=== PATIENT | female | born 1960 | race Caucasian/White ===

== ENCOUNTER 2020-06-16 14:48 | Emergency (ER) | payer MEDICAID, OTHER ==
[~2020-06-16] VITALS: Ht 162.5 cm; Wt 78.1 kg
--- NOTE | 2020-06-16 15:04 | ED General ---
General Stated Complaint: PASSING OUT History of Present Illness Date Seen by Provider: Jun 16, 2020 Time Seen by Provider: 14:58 Initial Comments 60-year-old female presents with pain in her right lateral ribs. Patient reports that 2 days ago she "passed out" fell and hurt her ribs when she landed on something. Patient reports that a year ago she had a heart surgery and valve surgery. Every since then she has frequently passed out. Patient reports she just recently moved to this area from [place] I will. That she was seen a director of security and physician that I will. Patient's only acute complaint is pain from the fall. Patient is complaining of syncope generalized malaise, chronic cough or all at least a year long complaints. Allergies and Home Medications Patient Home Medication List Home Medication List Reviewed: Yes Review of Systems Review of Systems Constitutional: No chills, No fever; malaise EENTM: see HPI Respiratory: cough Cardiovascular: No chest pain; Hx of Intervention, vascular heart diseas Gastrointestinal: no symptoms reported Genitourinary: no symptoms reported Musculoskeletal: see HPI Skin: no symptoms reported Psychiatric/Neurological: No Symptoms Reported Hematologic/Lymphatic: No Symptoms Reported Past Buzawyx-Vbprwh-Hnngpa Hx Past Med/Social Hx: Reviewed Nursing Past Med/Soc Hx Patient Social History Recent Foreign Travel: No Contact w/Someone Who Travel: No Physical Exam Vital Signs Vital Signs - First Documented 06/16/20 15:00 Temp 36.6 Pulse 84 Resp 16 B/P (MAP) 131/66 (87) Pulse Ox 96 O2 Delivery Room Air Capillary Refill : Height, Weight, BMI Height: '" Weight: lbs. oz. kg; BMI Method: General Appearance: No Apparent Distress, WD/WN Eyes: Bilateral Eye Normal Inspection, Bilateral Eye PERRL HEENT: PERRL/EOMI Neck: Normal Inspection, Non Tender Respiratory: Lungs Clear, Normal Breath Sounds Cardiovascular: Regular Rate, Rhythm, No Edema Gastrointestinal: Non Tender Extremity: Normal Inspection, Normal Range of Motion Neurologic/Psychiatric: Alert, Oriented x3, No Motor/Sensory Deficits, Normal Mood/Affect, kidney puller II-XII Norm as Tested Skin: Normal Color, Warm/Dry Progress/Results/Core Measures Suspected Sepsis SIRS Temperature: Pulse: Respiratory Rate: Laboratory Tests 06/16/20 15:18: White Blood Count 6.6 Blood Pressure / Mean: Laboratory Tests 06/16/20 15:18: Creatinine 0.78, Platelet Count 244 Results/Orders Lab Results Laboratory Tests Test 06/16/20 14:58 06/16/20 15:18 Range/Units Urine Color YELLOW Urine Clarity CLEAR Urine pH 6.0 5-9 Urine Specific [place] 1.010 L 1.016-1.022 Urine Protein NEGATIVE NEGATIVE Urine Glucose (UA) NEGATIVE NEGATIVE Urine Ketones NEGATIVE NEGATIVE Urine Nitrite NEGATIVE NEGATIVE Urine Bilirubin NEGATIVE NEGATIVE Urine Urobilinogen 0.2 < = 1.0 MG/DL Urine Leukocyte Esterase NEGATIVE NEGATIVE Urine RBC (Auto) NEGATIVE NEGATIVE Urine RBC NONE /HPF Urine WBC 0-2 /HPF Urine Squamous Epithelial Cells 2-5 /HPF Urine Crystals NONE /LPF Urine Bacteria NEGATIVE /HPF Urine Casts NONE /LPF Urine Mucus NEGATIVE /LPF Urine Culture Indicated NO White Blood Count 6.6 4.3-11.0 10^3/uL Red Blood Count 4.93 4.35-5.85 10^6/uL Hemoglobin 14.6 11.5-16.0 G/DL Hematocrit 44 35-52 % Mean Corpuscular Volume 89 80-99 FL Mean Corpuscular Hemoglobin 30 25-34 PG Mean Corpuscular Hemoglobin Concent 33 32-36 G/DL Red Cell Distribution Width 14.7 H 10.0-14.5 % Platelet Count 244 130-400 10^3/uL Mean Platelet Volume 10.6 H 7.4-10.4 FL Neutrophils (%) (Auto) 60 42-75 % Lymphocytes (%) (Auto) 28 12-44 % Monocytes (%) (Auto) 7 0-12 % Eosinophils (%) (Auto) 4 0-10 % Basophils (%) (Auto) 1 0-10 % Neutrophils # (Auto) 3.9 1.8-7.8 X 10^3 Lymphocytes # (Auto) 1.8 1.0-4.0 X 10^3 Monocytes # (Auto) 0.5 0.0-1.0 X 10^3 Eosinophils # (Auto) 0.3 0.0-0.3 10^3/uL Basophils # (Auto) 0.0 0.0-0.1 10^3/uL Sodium Level 143 135-145 MMOL/L Potassium Level 3.6 3.6-5.0 MMOL/L Chloride Level 97 L 98-107 MMOL/L Carbon Dioxide Level 29 21-32 MMOL/L Anion Gap 17 H 5-14 MMOL/L Blood Urea Nitrogen 18 7-18 MG/DL Creatinine 0.78 0.60-1.30 MG/DL Estimat Glomerular Filtration Rate > 60 BUN/Creatinine Ratio 23 Glucose Level 108 H 70-105 MG/DL Calcium Level 10.4 H 8.5-10.1 MG/DL My Orders Orders - AMILCAR ARRIAGA DO Ribs/Unilateral With Chest (06/16/20 15:05) Basic Metabolic Panel (06/16/20 15:05) Cbc With Automated Diff (06/16/20 15:05) Ua Culture If Indicated (06/16/20 15:05) Ekg Tracing (06/16/20 15:05) Vital Signs/I&O 06/16/20 15:00 Temp 36.6 Pulse 84 Resp 16 B/P (MAP) 131/66 (87) Pulse Ox 96 O2 Delivery Room Air Capillary Refill : Progress Note : Time: 16:46 Progress Note Patient's x-ray shows old rib fractures but no acute. Patient with no acute findings on lab or EKG. Patient has an appointment with her primary care provider which I encouraged her to keep. She should follow-up with director of security for her recurrent syncope has been going on over the last year. Patient stable will be discharged home ECG Initial ECG Impression Date: Jun 16, 2020 Initial ECG Impression Time: 15:01 Initial ECG Rhythm: Normal Sinus Initial ECG Intervals: Normal Initial ECG Impression: Nonspecific Changes Initial ECG Comparisson: No Previous ECG Available Comment hr 73, sinus rhythm, no acute changes. Diagnostic Imaging Diagonstic Imaging: Xray Plain Films/CT/US/NM/MRI: chest Comments [facility] [place], [place] NAME: HARMONY ESCALONA [facility] REC#: [id number] PT STATUS: REG ER : 1960 PHYSICIAN: AMILCAR ARRIAGA DO ADMIT DATE: 06/16/20/ER FS Draft Date of Exam:06/16/20 RIBS/UNILATERAL WITH CHEST INDICATION: Fall, pain to the right. FINDINGS: Sternal wires are midline. The lungs are clear. No effusion or pneumothorax. No free air beneath the diaphragms. Dedicated right rib series performed. There are old healed deformities posterolaterally on the right at the third, fourth, and fifth ribs. An acute-appearing fracture however is not identified. IMPRESSION: There are some old healed right rib deformities but no acute-appearing fracture or findings of pulmonary parenchymal or pleural injury. Dictated on workstation # [id number] Dict: 06/16/20 1628 Trans: 06/16/20 1641 [id number] Interpreted by: JILLIAN ROBLES Electronically signed by: Departure Impression Primary Impression: Contusion of right chest wall Qualified Codes: S20.211A - Contusion of right front wall of thorax, initial encounter Additional Impression: Recurrent syncope Disposition: HOME, SELF-CARE Condition: Stable Departure-Patient Inst. Patient Instructions: Bruised Rib (DC), Syncope (Fainting) (DC) Add. Discharge Instructions: Follow-up with your primary care provider and director of security for further evaluation of your chronic syncope and other medical conditions Emergency department focuses on treating and ruling out life-threatening diseases. Whenever possible, a diagnosis is given. However, most patients are given an impression based on their history, physical exam, and workup during your brief time in the ER. Information about probable diagnosis and other educational material has been provided. Please take the time to read and understand this information. It is very important that you follow up with a physician as discussed during the visit today. Failure to adhere to your follow-up instructions may lead to severe disability, injury, or so please make sure to keep your appointments or obtain one as requested. Please keep in mind the emergency department is not designed to your primary care or "family doctor" and nonurgent issues are best evaluated by an outpatient physician AMILCAR ARRIAGA DO Jun 16, 2020 15:04
[2020-06-16 15:20] LABS: BILIRUBIN,URINE NEGATIVE (NEGATIVE); CLARITY,URINE CLEAR; COLOR,URINE YELLOW; GLUCOSE, URINE (UA) NEGATIVE (NEGATIVE); KETONES,URINE NEGATIVE (NEGATIVE); LEUKOCYTE ESTERASE ,URINE NEGATIVE (NEGATIVE); NITRITE,URINE NEGATIVE (NEGATIVE); PROTEIN,URINE NEGATIVE (NEGATIVE); WBC,URINE 0-2 /HPF
[2020-06-16 15:21] LABS: BACTERIA,URINE NEGATIVE /HPF
[2020-06-16 15:28] LABS: HEMATOCRIT 44 % (35-52); HEMOGLOBIN 14.6 G/DL (11.5-16.0); MEAN CORPUSCULAR HEMOGLOBIN 30 PG (25-34); WHITE BLOOD COUNT 6.6 10^3/uL (4.3-11.0)
[2020-06-16 15:29] LABS: BASOPHILS % (AUTO) 1 % (0-10); EOSINOPHILS # (AUTO) 0.3 10^3/uL (0.0-0.3); EOSINOPHILS % (AUTO) 4 % (0-10); LYMPHOCYTES # (AUTO) 1.8 X 10^3 (1.0-4.0); LYMPHOCYTES % (AUTO) 28 % (12-44); MEAN CORPUSCULAR HGB CONC 33 G/DL (32-36); MEAN CORPUSCULAR VOLUME 89 FL (80-99); MEAN PLATELET VOLUME 10.6 FL (7.4-10.4); MONOCYTES # (AUTO) 0.5 X 10^3 (0.0-1.0); MONOCYTES % (AUTO) 7 % (0-12); NEUTROPHILS # (AUTO) 3.9 X 10^3 (1.8-7.8); NEUTROPHILS % (AUTO) 60 % (42-75); PLATELET COUNT 244 10^3/uL (130-400)
[2020-06-16 15:49] LABS: BUN/CREATININE RATIO 23; CALCIUM 10.4 MG/DL (8.5-10.1); CARBON DIOXIDE 29 MMOL/L (21-32); CHLORIDE 97 MMOL/L (98-107); CREATININE SERUM 0.78 MG/DL (0.60-1.30); GFR ESTIMATED > 60; GLUCOSE 108 MG/DL (70-105); POTASSIUM 3.6 MMOL/L (3.6-5.0); SODIUM 143 MMOL/L (135-145)
--- NOTE | 2020-06-16 16:42 | Diagnostic Imaging Report ---
INDICATION: Fall, pain to the right. FINDINGS: Sternal wires are midline. The lungs are clear. No effusion or pneumothorax. No free air beneath the diaphragms. Dedicated right rib series performed. There are old healed deformities posterolaterally on the right at the third, fourth, and fifth ribs. An acute-appearing fracture however is not identified. IMPRESSION: There are some old healed right rib deformities but no acute-appearing fracture or findings of pulmonary parenchymal or pleural injury. Dictated by: Dictated on workstation # [id number]
[2020-06-16 17:04] VITALS: BP 114/54
== END 2020-06-16 17:04 | disposition home or self-care (01) ==
LOC: ER FS 14:50
DX: S20.211A Contusion of right front wall of thorax, initial encounter (principal); R55 Syncope and collapse; W18.39XA Other fall on same level, initial encounter
CPT/HCPCS: 36415; 71101; 80048; 81000; 85025; 93005

== ENCOUNTER 2020-12-20 10:51 | Emergency (ER) | payer MEDICAID ==
[~2020-12-20] VITALS: Ht 162 cm; Wt 78.0 kg
--- NOTE | 2020-12-20 11:11 | ED Abdominal Pain ---
General Chief Complaint: Abdominal/GI Problems Stated Complaint: HEADACHE; VOMITING History of Present Illness Date Seen by Provider: December 20, 2020 Time Seen by Provider: 11:05 Initial Comments 60-year-old female presents with 3 days of "just do not feel good" patient reports some nausea, vomiting. She has not vomited since yesterday. She had an episode of dry heaves this morning. She has mild occasional headache. Occasional cough. She has had one Covid vaccine. Patient is a very vague. She does not follow with her primary care provider. No reports of fever, urinary symptoms or abdominal pain. Patient reports she has had some increased fatigue over the last couple days. No other systemic complaints. Allergies and Home Medications Allergies Coded Allergies: codeine (Verified Allergy, Mild, 12/20/20) Patient Home Medication List Home Medication List Reviewed: Yes Review of Systems Review of Systems Constitutional: No chills, No fever; malaise Respiratory: Denies Cough Cardiovascular: Denies Chest Pain, Denies Irregular Heart Rate Gastrointestinal: Denies Abdominal Pain, Denies Constipated, Denies Diarrhea; Nausea, Vomiting Genitourinary: No Symptoms Reported Musculoskeletal: no symptoms reported Skin: no symptoms reported Psychiatric/Neurological: No Symptoms Reported Endocrine: No Symptoms Reported Past Dpckezx-Gkaxfp-Elzzqk Hx Past Med/Social Hx: Reviewed Nursing Past Med/Soc Hx Patient Social History Alcohol Beverage of Choice: Vodka Type Used: Cigarettes 2nd Hand Smoke Exposure: No Recent Hopitalizations: No Seasonal Allergies Seasonal Allergies: No Past Medical History Surgeries: Yes Cardiac, Coronary Stent, Valve Replacement Respiratory: Yes Asthma Cardiac: Yes (CHF) Heart Attack, High Cholesterol, Hypertension Neurological: No Genitourinary: No Gastrointestinal: No Musculoskeletal: Yes (Chronic Pain) Endocrine: No HEENT: No Cancer: No Psychosocial: No Integumentary: No Blood Disorders: No Physical Exam Vital Signs Vital Signs - First Documented 12/20/20 10:55 Temp 36.1 Pulse 61 Resp 18 B/P (MAP) 136/62 (86) Pulse Ox 100 O2 Delivery Room Air Capillary Refill : Height/Weight/BMI Height: '" Weight: lbs. oz. kg; 29.00 BMI Method: General Appearance: no apparent distress Respiratory: chest non-tender, lungs clear Cardiovascular: normal peripheral pulses, regular rate, rhythm Peripheral Pulses: 2+ Radial Pulses (R), 2+ Radial Pulses (L) Gastrointestinal: non tender Extremities: normal range of motion, normal inspection Neurologic/Psychiatric: no motor/sensory deficits, alert, oriented x 3 Skin: normal color, warm/dry Progress/Results/Core Measures Results/Orders Lab Results Laboratory Tests Test 12/20/20 11:45 12/20/20 12:20 Range/Units White Blood Count 4.7 4.3-11.0 10^3/uL Red Blood Count 4.65 4.35-5.85 10^6/uL Hemoglobin 14.0 11.5-16.0 G/DL Hematocrit 42 35-52 % Mean Corpuscular Volume 90 80-99 FL Mean Corpuscular Hemoglobin 30 25-34 PG Mean Corpuscular Hemoglobin Concent 34 32-36 G/DL Red Cell Distribution Width 13.1 10.0-14.5 % Platelet Count 235 130-400 10^3/uL Mean Platelet Volume 9.8 7.4-10.4 FL Immature Granulocyte % (Auto) 0 % Neutrophils (%) (Auto) 61 42-75 % Lymphocytes (%) (Auto) 27 12-44 % Monocytes (%) (Auto) 7 0-12 % Eosinophils (%) (Auto) 4 0-10 % Basophils (%) (Auto) 1 0-10 % Neutrophils # (Auto) 2.9 1.8-7.8 X 10^3 Lymphocytes # (Auto) 1.3 1.0-4.0 X 10^3 Monocytes # (Auto) 0.3 0.0-1.0 X 10^3 Eosinophils # (Auto) 0.2 0.0-0.3 10^3/uL Basophils # (Auto) 0.1 0.0-0.1 10^3/uL Immature Granulocyte # (Auto) 0.0 0.0-0.1 10^3/uL Sodium Level 138 135-145 MMOL/L Potassium Level 4.3 3.6-5.0 MMOL/L Chloride Level 102 98-107 MMOL/L Carbon Dioxide Level 28 21-32 MMOL/L Anion Gap 8 5-14 MMOL/L Blood Urea Nitrogen 19 H 7-18 MG/DL Creatinine 0.74 0.60-1.30 MG/DL Estimat Glomerular Filtration Rate > 60 BUN/Creatinine Ratio 26 Glucose Level 112 H 70-105 MG/DL Calcium Level 10.2 H 8.5-10.1 MG/DL Corrected Calcium 10.0 8.5-10.1 MG/DL Total Bilirubin 0.4 0.1-1.0 MG/DL Aspartate Amino Transf (AST/SGOT) 14 5-34 U/L Alanine Aminotransferase (ALT/SGPT) 8 0-55 U/L Alkaline Phosphatase 53 40-136 U/L Total Protein 7.0 6.4-8.2 GM/DL Albumin 4.2 3.2-4.5 GM/DL Lipase 52 8-78 U/L Urine Color YELLOW Urine Clarity CLOUDY Urine pH 6.0 5-9 Urine Specific [place] 1.025 H 1.016-1.022 Urine Protein NEGATIVE NEGATIVE Urine Glucose (UA) NEGATIVE NEGATIVE Urine Ketones NEGATIVE NEGATIVE Urine Nitrite POSITIVE H NEGATIVE Urine Bilirubin NEGATIVE NEGATIVE Urine Urobilinogen 0.2 < = 1.0 MG/DL Urine Leukocyte Esterase TRACE H NEGATIVE Urine RBC (Auto) NEGATIVE NEGATIVE Urine RBC NONE /HPF Urine WBC 5-10 H /HPF Urine Squamous Epithelial Cells 10-25 H /HPF Urine Crystals NONE /LPF Urine Bacteria MODERATE H /HPF Urine Casts NONE /LPF Urine Mucus NEGATIVE /LPF Urine Culture Indicated YES My Orders Orders - ARRIAGA,AMILCAR L DO Cbc With Automated Diff (12/20/20 11:19) Comprehensive Metabolic Panel (12/20/20 11:19) Lipase (12/20/20 11:19) Ua Culture If Indicated (12/20/20 11:19) Abdomen Flat & Upright/Decub (12/20/20 11:19) Ondansetron Injection (Zofran Injectio (12/20/20 11:30) Lactated Ringers (Lr 1000 Ml Iv Solution (12/20/20 11:19) Famotidine Injection (Pepcid Injection) (12/20/20 11:19) Urine Culture (12/20/20 12:20) Medications Given in ED Current Medications Medications Dose Ordered Sig/Adriana Route Start Time Stop Time Status Last Admin Dose Admin Ondansetron HCl 4 mg ONCE ONCE IVP 12/20/20 11:30 12/20/20 11:31 DC 12/20/20 11:50 4 MG Vital Signs/I&O 12/20/20 10:55 Temp 36.1 Pulse 61 Resp 18 B/P (MAP) 136/62 (86) Pulse Ox 100 O2 Delivery Room Air Progress Progress Note : Time: 12:39 Progress Note Patient with questionable urinary tract infection. Based on her having symptoms I will treat her with Keflex along with some Zofran. Patient stable and discharged home. She should follow-up with her primary care provider for further evaluation Diagnostic Imaging Diagonstic Imaging: Xray Plain Films/CT/US/NM/MRI: abdomen Comments [facility] [place], [place] NAME: HARMONY ESCALONA [facility] REC#: [id number] PT STATUS: REG ER : 1960 PHYSICIAN: AMILCAR ARRIAGA DO ADMIT DATE: 12/20/20/ER FS Draft Date of Exam:12/20/20 ABDOMEN FLAT & UPRIGHT/DECUB INDICATION: Nausea, vomiting, right lower quadrant pain. FINDINGS: There are surgical clips in the right lower quadrant. The bowel gas, as well as clips at the gallbladder fossa and the bowel gas pattern are unremarkable. No abnormal fecal loading. No pneumatosis. No free gas. No air-fluid levels. Departure Impression Primary Impression: Nausea and vomiting Qualified Codes: R11.2 - Nausea with vomiting, unspecified Additional Impression: Urinary tract infection Qualified Codes: N30.00 - Acute cystitis without hematuria Disposition: HOME, SELF-CARE Condition: Improved Departure-Patient Inst. Referrals: ALOK PEREZ (PCP) Primary Care Physician [facility] (Family) Primary Care Physician Patient Instructions: Urinary Tract Infection, Adult (DC) Scripts Ondansetron (Ondansetron Odt) 4 Mg Tab.rapdis 4 MG PO Q6H PRN for NAUSEA/VOMITING, #20 TAB 0 Refills Prov: AMILCAR ARRIAGA DO 12/20/20 Cephalexin (Cephalexin) 500 Mg Tablet 500 MG PO QID, #20 TAB 0 Refills Prov: AMILCAR ARRIAGA DO 12/20/20 AMILCAR ARRIAGA DO December 20, 2020 11:11
[2020-12-20] MEDS ORDERED: LACTATED RINGERS 1,000 ML IV STA (11:19)
[2020-12-20] MEDS ORDERED: FAMOTIDINE 20MG/2ML IV (PEPCID) IV STA (11:19)
[2020-12-20] MEDS ORDERED: ONDANSETRON 4 MG/2 ML (SDV) Z0FRAN IVP ONE (11:30)
--- NOTE | 2020-12-20 11:43 | Diagnostic Imaging Report ---
INDICATION: Nausea, vomiting, right lower quadrant pain. FINDINGS: There are surgical clips in the right lower quadrant. The bowel gas, as well as clips at the gallbladder fossa and the bowel gas pattern are unremarkable. No abnormal fecal loading. No pneumatosis. No free gas. No air-fluid levels. IMPRESSION: Nonobstructive and unremarkable bowel gas pattern. Dictated by: Dictated on workstation # [id number]
[2020-12-20 11:56] LABS: BASOPHILS % (AUTO) 1 % (0-10); EOSINOPHILS % (AUTO) 4 % (0-10); HEMATOCRIT 42 % (35-52); LYMPHOCYTES % (AUTO) 27 % (12-44); MEAN CORPUSCULAR HEMOGLOBIN 30 PG (25-34); MEAN CORPUSCULAR HGB CONC 34 G/DL (32-36); MEAN CORPUSCULAR VOLUME 90 FL (80-99); MEAN PLATELET VOLUME 9.8 FL (7.4-10.4); MONOCYTES % (AUTO) 7 % (0-12); NEUTROPHILS % (AUTO) 61 % (42-75); PLATELET COUNT 235 10^3/uL (130-400); WHITE BLOOD COUNT 4.7 10^3/uL (4.3-11.0)
[2020-12-20 11:57] LABS: BASOPHILS # (AUTO) 0.1 10^3/uL (0.0-0.1); EOSINOPHILS # (AUTO) 0.2 10^3/uL (0.0-0.3); LYMPHOCYTES # (AUTO) 1.3 X 10^3 (1.0-4.0); MONOCYTES # (AUTO) 0.3 X 10^3 (0.0-1.0); NEUTROPHILS # (AUTO) 2.9 X 10^3 (1.8-7.8)
[2020-12-20 12:23] LABS: CARBON DIOXIDE 28 MMOL/L (21-32); CHLORIDE 102 MMOL/L (98-107); POTASSIUM 4.3 MMOL/L (3.6-5.0); SODIUM 138 MMOL/L (135-145)
[2020-12-20 12:24] LABS: ALANINE AMINOTRANSFERASE 8 U/L (0-55); ALBUMIN 4.2 GM/DL (3.2-4.5); ALKALINE PHOSPHATASE 53 U/L (40-136); BILIRUBIN,TOTAL 0.4 MG/DL (0.1-1.0); BUN/CREATININE RATIO 26; CALCIUM 10.2 MG/DL (8.5-10.1); CREATININE SERUM 0.74 MG/DL (0.60-1.30); GFR ESTIMATED > 60; GLUCOSE 112 MG/DL (70-105); LIPASE 52 U/L (8-78)
[2020-12-20 12:32] LABS: BILIRUBIN,URINE NEGATIVE (NEGATIVE); CLARITY,URINE CLOUDY; COLOR,URINE YELLOW; GLUCOSE, URINE (UA) NEGATIVE (NEGATIVE); KETONES,URINE NEGATIVE (NEGATIVE); LEUKOCYTE ESTERASE ,URINE TRACE (NEGATIVE); NITRITE,URINE POSITIVE (NEGATIVE); PROTEIN,URINE NEGATIVE (NEGATIVE)
[2020-12-20 12:33] LABS: BACTERIA,URINE MODERATE /HPF
[2020-12-20] MEDS ORDERED: CEPH500T PO (12:41)
[2020-12-20] MEDS ORDERED: ONDA4TAB11 PO (12:41)
[2020-12-20 12:54] VITALS: BP 122/72
== END 2020-12-20 12:56 | disposition home or self-care (01) ==
LOC: EDUNIT# 10:51 → ER FS 10:52
DX: R11.2 Nausea with vomiting, unspecified (principal); N39.0 Urinary tract infection, site not specified; I11.0 Hypertensive heart disease with heart failure; I50.9 Heart failure, unspecified; J45.909 Unspecified asthma, uncomplicated; I25.2 Old myocardial infarction; Z88.5 Allergy status to narcotic agent
CPT/HCPCS: 36415; 74019; 80053; 81000; 83690; 85025; 87077; 87088; 87186

== ENCOUNTER 2021-01-11 20:20 | Emergency (ER) | payer MEDICAID ==
[~2021-01-11] VITALS: Ht 162.6 cm; Wt 47.6 kg
[~2021-01-11 20:20] MED LIST: CEPH500T PO; ONDA4TAB11 PO
--- NOTE | 2021-01-11 20:26 | ED GI ---
General Stated Complaint: N/V History of Present Illness Date Seen by Provider: Jan 11, 2021 Time Seen by Provider: 20:25 Initial Comments 60-year-old female presents with generalized body aches, nausea and vomiting. Patient reports that symptoms started yesterday after she received her second Covid vaccination. Reports that she had similar response to her initial vaccination but this 1 is worse. She reports she is having hard time keeping them down. She reports some mild right mid back and abdominal pain. She denies any urinary symptoms. Allergies and Home Medications Allergies Coded Allergies: codeine (Verified Allergy, Mild, 12/20/20) Penicillins (Verified Allergy, Unknown, 01/11/21) prednisone (Verified Allergy, Unknown, 01/11/21) Home Medications Cephalexin 500 Mg Tablet, 500 MG PO QID Prescribed by: AMILCAR ARRIAGA on 12/20/20 1241 Ondansetron 4 Mg Tab.rapdis, 4 MG PO Q6H PRN for NAUSEA/VOMITING Prescribed by: AMILCAR ARRIAGA on 12/20/20 1241 Patient Home Medication List Home Medication List Reviewed: Yes Review of Systems Review of Systems Constitutional: No chills, No fever; malaise EENTM: No Symptoms Reported Respiratory: Denies Cough, Denies Shortness of Air, Denies Wheezing Cardiovascular: Denies Chest Pain, Denies Irregular Heart Rate Gastrointestinal: Abdominal Pain; Denies Diarrhea; Nausea, Vomiting Genitourinary: No Symptoms Reported Musculoskeletal: see HPI Skin: no symptoms reported Psychiatric/Neurological: No Symptoms Reported Endocrine: No Symptoms Reported Past Uqsxrpv-Wsmhox-Zvijal Hx Past Med/Social Hx: Reviewed Nursing Past Med/Soc Hx Patient Social History Alcohol Beverage of Choice: Vodka Type Used: Cigarettes 2nd Hand Smoke Exposure: No Recent Hopitalizations: No Seasonal Allergies Seasonal Allergies: No Past Medical History Surgeries: Yes Cardiac, Coronary Stent, Valve Replacement Respiratory: Yes Asthma Cardiac: Yes (CHF) Heart Attack, High Cholesterol, Hypertension Neurological: No Genitourinary: No Gastrointestinal: No Musculoskeletal: Yes (Chronic Pain) Endocrine: No HEENT: No Cancer: No Psychosocial: No Integumentary: No Blood Disorders: No Physical Exam Vital Signs Vital Signs - First Documented 01/11/21 20:30 Temp 36.0 Pulse 75 Resp 18 B/P (MAP) 117/62 (80) Pulse Ox 99 O2 Delivery Room Air Capillary Refill : Height/Weight/BMI Height: '" Weight: lbs. oz. kg; 29.00 BMI Method: General Appearance: no apparent distress HEENT: PERRL/EOMI Neck: full range of motion, supple Respiratory: lungs clear, normal breath sounds Cardiovascular: normal peripheral pulses, regular rate, rhythm Peripheral Pulses: 2+ Radial Pulses (R), 2+ Radial Pulses (L) Gastrointestinal: soft, tenderness (Mild right-sided tenderness) Back: CVA tenderness (R) Neurologic/Psychiatric: alert, normal mood/affect, oriented x 3 Skin: normal color, warm/dry Progress/Results/Core Measures Results/Orders Lab Results Laboratory Tests Test 01/11/21 20:45 01/11/21 21:15 Range/Units White Blood Count 5.5 4.3-11.0 10^3/uL Red Blood Count 4.37 4.35-5.85 10^6/uL Hemoglobin 13.3 11.5-16.0 G/DL Hematocrit 39 35-52 % Mean Corpuscular Volume 90 80-99 FL Mean Corpuscular Hemoglobin 30 25-34 PG Mean Corpuscular Hemoglobin Concent 34 32-36 G/DL Red Cell Distribution Width 12.4 10.0-14.5 % Platelet Count 224 130-400 10^3/uL Mean Platelet Volume 10.2 7.4-10.4 FL Immature Granulocyte % (Auto) 0 % Neutrophils (%) (Auto) 68 42-75 % Lymphocytes (%) (Auto) 19 12-44 % Monocytes (%) (Auto) 7 0-12 % Eosinophils (%) (Auto) 4 0-10 % Basophils (%) (Auto) 1 0-10 % Neutrophils # (Auto) 3.7 1.8-7.8 X 10^3 Lymphocytes # (Auto) 1.1 1.0-4.0 X 10^3 Monocytes # (Auto) 0.4 0.0-1.0 X 10^3 Eosinophils # (Auto) 0.2 0.0-0.3 10^3/uL Basophils # (Auto) 0.0 0.0-0.1 10^3/uL Immature Granulocyte # (Auto) 0.0 0.0-0.1 10^3/uL Sodium Level 137 135-145 MMOL/L Potassium Level 3.4 L 3.6-5.0 MMOL/L Chloride Level 96 L 98-107 MMOL/L Carbon Dioxide Level 30 21-32 MMOL/L Anion Gap 11 5-14 MMOL/L Blood Urea Nitrogen 13 7-18 MG/DL Creatinine 1.10 0.60-1.30 MG/DL Estimat Glomerular Filtration Rate 51 BUN/Creatinine Ratio 12 Glucose Level 104 70-105 MG/DL Calcium Level 9.5 8.5-10.1 MG/DL Corrected Calcium 9.5 8.5-10.1 MG/DL Total Bilirubin 0.6 0.1-1.0 MG/DL Aspartate Amino Transf (AST/SGOT) 13 5-34 U/L Alanine Aminotransferase (ALT/SGPT) 9 0-55 U/L Alkaline Phosphatase 54 40-136 U/L Total Protein 6.5 6.4-8.2 GM/DL Albumin 4.0 3.2-4.5 GM/DL Lipase 65 8-78 U/L Urine Color YELLOW Urine Clarity CLEAR Urine pH 6.0 5-9 Urine Specific [place] 1.015 L 1.016-1.022 Urine Protein NEGATIVE NEGATIVE Urine Glucose (UA) NEGATIVE NEGATIVE Urine Ketones NEGATIVE NEGATIVE Urine Nitrite NEGATIVE NEGATIVE Urine Bilirubin NEGATIVE NEGATIVE Urine Urobilinogen 0.2 < = 1.0 MG/DL Urine Leukocyte Esterase TRACE H NEGATIVE Urine RBC (Auto) NEGATIVE NEGATIVE Urine RBC NONE /HPF Urine WBC 0-2 /HPF Urine Squamous Epithelial Cells 2-5 /HPF Urine Renal Epithelial Cells /HPF Urine Crystals NONE /LPF Urine Bacteria TRACE /HPF Urine Casts PRESENT /LPF Urine Hyaline Casts 2-5 H /LPF Urine Mucus NEGATIVE /LPF Urine Culture Indicated NO My Orders Orders - ARRIAGA,AMILCAR L DO Cbc With Automated Diff (01/11/21 20:29) Comprehensive Metabolic Panel (01/11/21 20:29) Lipase (01/11/21 20:29) Ua Culture If Indicated (01/11/21 20:29) Ketorolac Injection (Toradol Injection) (01/11/21 20:29) Abdomen (Kub) 1 View (01/11/21 20:29) Metoclopramide Injection (Reglan Injecti (01/11/21 21:32) Vital Signs/I&O 01/11/21 20:30 Temp 36.0 Pulse 75 Resp 18 B/P (MAP) 117/62 (80) Pulse Ox 99 O2 Delivery Room Air Progress Progress Note : Progress Note Patient with no significant findings on lab or x-ray. Patient symptoms are c onsistent with a response to the Covid vaccination. I discussed with her that this will wear off in time and that she is just responding to her shot. Patient has Zofran at home. She is stable and discharged home Diagnostic Imaging Diagonstic Imaging: Xray Plain Films/CT/US/NM/MRI: abdomen Comments Date of Exam:01/11/21 ABDOMEN (KUB) 1 VIEW INDICATION: Nausea and vomiting. 2 views were obtained. FINDINGS: The bowel gas pattern is nonspecific. There are surgical clips in the right upper quadrant and pelvis. There are no abnormal abdominal calcifications. IMPRESSION: Nonspecific bowel gas pattern. Reviewed: Reviewed by Me, Reviewed/Discussed Departure Impression Primary Impression: Myalgia after COVID-19 vaccination Additional Impression: Nausea and vomiting Qualified Codes: R11.2 - Nausea with vomiting, unspecified Disposition: 01 HOME, SELF-CARE Condition: Stable Departure-Patient Inst. Referrals: ALOK PEREZ (PCP) Primary Care Physician [facility] (Family) Primary Care Physician Patient Instructions: COVID-19 Vaccine (mRNA), Nausea and Vomiting, Adult (DC) Add. Discharge Instructions: Clear liquid diet, advance as tolerated Follow-up with your primary care provider as needed AMILCAR ARRIAGA DO Jan 11, 2021 20:26
[2021-01-11] MEDS ORDERED: KETOROLAC 30 MG/ML VIAL IVP STA (20:29)
[2021-01-11 20:53] LABS: HEMATOCRIT 39 % (35-52); HEMOGLOBIN 13.3 G/DL (11.5-16.0); MEAN CORPUSCULAR HEMOGLOBIN 30 PG (25-34); MEAN CORPUSCULAR HGB CONC 34 G/DL (32-36); MEAN CORPUSCULAR VOLUME 90 FL (80-99); MEAN PLATELET VOLUME 10.2 FL (7.4-10.4); PLATELET COUNT 224 10^3/uL (130-400); WHITE BLOOD COUNT 5.5 10^3/uL (4.3-11.0)
[2021-01-11 20:54] LABS: BASOPHILS % (AUTO) 1 % (0-10); EOSINOPHILS # (AUTO) 0.2 10^3/uL (0.0-0.3); EOSINOPHILS % (AUTO) 4 % (0-10); LYMPHOCYTES # (AUTO) 1.1 X 10^3 (1.0-4.0); LYMPHOCYTES % (AUTO) 19 % (12-44); MONOCYTES # (AUTO) 0.4 X 10^3 (0.0-1.0); MONOCYTES % (AUTO) 7 % (0-12); NEUTROPHILS # (AUTO) 3.7 X 10^3 (1.8-7.8); NEUTROPHILS % (AUTO) 68 % (42-75)
--- NOTE | 2021-01-11 20:59 | Diagnostic Imaging Report ---
INDICATION: Nausea and vomiting. 2 views were obtained. FINDINGS: The bowel gas pattern is nonspecific. There are surgical clips in the right upper quadrant and pelvis. There are no abnormal abdominal calcifications. IMPRESSION: Nonspecific bowel gas pattern. Dictated by: Dictated on workstation # [id number]
[2021-01-11 21:13] LABS: BILIRUBIN,TOTAL 0.6 MG/DL (0.1-1.0); CALCIUM 9.5 MG/DL (8.5-10.1); CREATININE SERUM 1.1 MG/DL (0.60-1.30); POTASSIUM 3.4 MMOL/L (3.6-5.0); TOTAL PROTEIN 6.5 GM/DL (6.4-8.2)
[2021-01-11 21:25] LABS: BACTERIA,URINE TRACE /HPF; BILIRUBIN,URINE NEGATIVE (NEGATIVE); CLARITY,URINE CLEAR; COLOR,URINE YELLOW; GLUCOSE, URINE (UA) NEGATIVE (NEGATIVE); KETONES,URINE NEGATIVE (NEGATIVE); LEUKOCYTE ESTERASE ,URINE TRACE (NEGATIVE); NITRITE,URINE NEGATIVE (NEGATIVE); PROTEIN,URINE NEGATIVE (NEGATIVE); WBC,URINE 0-2 /HPF
[2021-01-11] MEDS ORDERED: METOCLOPRAMIDE INJ 10 MG/2 ML (REGLAN) IVP STA (21:32)
[2021-01-11 21:49] VITALS: BP 121/72
== END 2021-01-11 21:49 | disposition home or self-care (01) ==
LOC: EDUNIT# 20:20 → ER FS 20:21
DX: M79.10 Myalgia, unspecified site (principal); T50.Z95A Adverse effect of other vaccines and biological substances, initial encounter; R11.2 Nausea with vomiting, unspecified; I11.0 Hypertensive heart disease with heart failure; I50.9 Heart failure, unspecified; I25.2 Old myocardial infarction; J45.909 Unspecified asthma, uncomplicated; Z88.0 Allergy status to penicillin; Z88.5 Allergy status to narcotic agent; Z88.8 Allergy status to other drugs, medicaments and biological substances
CPT/HCPCS: 36415; 74018; 80053; 81000; 83690; 85025

== ENCOUNTER 2021-02-08 10:23 | Emergency (ER) | payer MEDICAID ==
[~2021-02-08] VITALS: Ht 162.6 cm; Wt 76.7 kg
[2021-02-08] MEDS ORDERED: ORPHENADRINE 60 MG/2 ML (NORFLEX) AMP (ED ONLY) IM STA (10:47)
[2021-02-08] MEDS ORDERED: KETOROLAC 60 MG/2 ML VIAL IM STA (10:47)
--- NOTE | 2021-02-08 10:55 | ED Fall/Injury ---
General Chief Complaint: Trauma-Non Activation Stated Complaint: FALL Source: patient, old records History of Present Illness Date Seen by Provider: Feb 08, 2021 Time Seen by Provider: 10:25 Initial Comments 61-year-old female presenting with complaints of pain in multiple areas since a fall around 1800 on February 07. She hit the back of her head and has some pain in the occipital area but denies loss of consciousness. She is complaining of pain in both knees with some abrasions and scrapes. She also has pain in her right ankle and foot with some swelling. She has chronic pain in her back that is no different since the fall. She also has some pain to her right low back with muscle spasm and tender to touch. No obvious bruising to any areas of pain. No nausea, vomiting, change in vision, drainage from nose or ears. She ran out of her chronic hydrocodone pain medicine 2-3 days ago and finally got a ride today to come get that refilled and was going to see DELMY Michael about pain from fall as well but her provider is not in clinic today so she came to the ED. Location Injury Occurred: home Occurred: yesterday (about 1800 or so in the evening) Severity: severe Injuries/Pain Location: head, lower extremity Context: tripped Loss of Consciousness: no loss of consciousness Associated Symptoms (Fall): No Abdominal Pain, No Chest Pain, No Confusion, No Dizziness; Headache (mild occipital); No Lightheadedness; Muscle Spasms; No Nausea/Vomiting, No Neck Pain, No Ringing in Ears, No Seizures, No Shortness of Air, No Slurred Speech; Trouble Walking (due to pain in legs, right more than left); No Vision Changes Allergies and Home Medications Allergies Coded Allergies: codeine (Verified Allergy, Mild, 12/20/20) Penicillins (Verified Allergy, Unknown, 01/11/21) prednisone (Verified Allergy, Unknown, 01/11/21) Home Medications Cephalexin 500 Mg Tablet, 500 MG PO QID Prescribed by: AMILCAR ARRIAGA on 12/20/20 1241 Cyclobenzaprine HCl 10 Mg Tablet, 10 MG PO Q8H PRN for SPASMS Prescribed by: CHAITANYA MIRANDA on 02/08/21 1308 Hydrocodone/Acetaminophen 1 Each Tablet, 1 EACH PO TID PRN for PAIN-SEVERE (8- 10) Prescribed by: CHAITANYA MIRANDA on 02/08/21 1308 Ondansetron 4 Mg Tab.rapdis, 4 MG PO Q6H PRN for NAUSEA/VOMITING Prescribed by: AMILCAR ARRIAGA on 12/20/20 1241 Patient Home Medication List Home Medication List Reviewed: Yes Review of Systems Review of Systems Constitutional: No chills, No fever Eyes: No Symptoms Reported Ears, Nose, Mouth, Throat: no symptoms reported Respiratory: no symptoms reported Cardiovascular: no symptoms reported Gastrointestinal: no symptoms reported Genitourinary: no symptoms reported Musculoskeletal: see HPI Skin: change in color (mild redness to knees for contusion, right greater than left) Psychiatric/Neurological: No Symptoms Reported Past Iomsuje-Thgevt-Dqhijg Hx Seasonal Allergies Seasonal Allergies: No Past Medical History Surgeries: Yes Cardiac, Coronary Stent, Valve Replacement Respiratory: Yes Asthma Cardiac: Yes (CHF) Heart Attack, High Cholesterol, Hypertension Neurological: No Genitourinary: No Gastrointestinal: No Musculoskeletal: Yes (Chronic Pain) Endocrine: No HEENT: No Cancer: No Psychosocial: No Integumentary: No Blood Disorders: No Physical Exam Vital Signs Vital Signs - First Documented 02/08/21 10:35 Temp 37.0 Pulse 94 Resp 18 B/P (MAP) 119/54 (75) Pulse Ox 97 O2 Delivery Room Air Capillary Refill : Height, Weight, BMI Height: '" Weight: lbs. oz. kg; 18.00 BMI Method: General Appearance: WD/WN, other (anxious) HEENT: PERRL/EOMI Neck: full range of motion, supple, tender lateral (bilateral posterior neck along trapezius muscle area) Cardiovascular: normal peripheral pulses, regular rate, rhythm, systolic murmur (/) Respiratory: chest non-tender, lungs clear, normal breath sounds, no respiratory distress, no accessory muscle use Gastrointestinal: normal bowel sounds, non tender, soft, no pulsatile mass Rectal: deferred Back: no CVA tenderness, muscle spasm (lumbar area of back on right side); No vertebral tenderness Extremities: normal range of motion, no calf tenderness, normal capillary refill, swelling (mild swelling to right ankle/foot.), other (Stable ankle/foot on exam but complaint of pain with palpation anywhere on the foot and ankle on right side) 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, no motor/sensory deficits, alert, oriented x 3 Skin: warm/dry; No ecchymosis; other (mild redness to bilateral knees, right more than left to go with contusion) Joyce Coma Score Best Eye Response: (4) Open Spontaneously Best Verbal Response: (5) Oriented Best Motor Response: (6) Obeys Commands Joyce Total: 15 Progress/Results/Core Measures Results/Orders My Orders Orders - CHAITANYA MIRANDA MD Ketorolac Injection (Toradol Injection) (02/08/21 10:47) Orphenadrine Inj (Ed Only) (Norflex Inje (02/08/21 10:47) Ct Head Wo (02/08/21 10:48) Knee 3 View Bilateral (02/08/21 10:48) Ankle 3 View Right (02/08/21 10:48) Foot 3 View Right (02/08/21 10:48) Air Strup Ankle Brace (02/08/21 13:08) Vital Signs/I&O 02/08/21 02/08/21 10:35 13:16 Temp 37.0 Pulse 94 88 Resp 18 18 B/P (MAP) 119/54 (75) 123/82 Pulse Ox 97 96 O2 Delivery Room Air Room Air Progress Progress Note #1: Progress Note Toradol and Norflex to help treat pain and muscle spasms. Patient requesting pain medicine as she is due for refill of her hydrocodone she gets scheduled from the clinic and states her regular provider is not in today. I advised her that provided images looked okay I could prescribe a few pills to help get her chance to get with the clinic to get the chronic refill. Knees and right foot and ankle were ordered. Since she takes Eliquis a CT scan of her head was also obtained due to her complaint of hitting her head and having pain in the occipital area and along the trapezius muscles on both sides of her neck Differential diagnosis includes exacerbation of chronic pain, contusion from fall, ankle fracture, foot fracture, intracranial hemorrhage, multiple contusions, muscle strain and spasm Progress Note #2: Progress Note Patient reports feeling a little bit better after treatment here in the ED. She was still having a lot of pain and spasms with movement. Reassured patient that her imaging did not show any bleeding or acute fractures. Will prescribe a few hydrocodone and stressed importance of getting back with the clinic. She may also alternate ice and heat to help with inflammation. Diagnostic Imaging Diagonstic Imaging: Xray Plain Films/CT/US/NM/MRI: ankle [facility] [place] [place] NAME: HARMONY ESCALONA [facility] REC#: [id number] PT STATUS: REG ER : 1960 PHYSICIAN: CHAITANYA MIRANDA MD ADMIT DATE: 02/08/21/ER FS Signed Date of Exam:02/08/21 ANKLE 3 VIEW RIGHT ANKLE 3 VIEW RIGHT COMPARISON: None available. INDICATION: Ankle pain after fall TECHNIQUE: Non-weight bearing AP, oblique, and lateral views. FINDINGS: No fracture or traumatic malalignment. No osteochondral lesion of the talar dome. Small plantar and dorsal calcaneal spurs. IMPRESSION: 1. No acute fracture or traumatic malalignment. Dictated by: Dictated on workstation # [id number] Dict: 02/08/21 1206 Trans: 02/08/21 1207 [facility] [id number] Interpreted by: CODY DAVENPORT MD Electronically signed by: CODY DAVENPORT MD 02/08/21 1207 Reviewed: Reviewed by Mt Diagonstic Imaging: Xray Plain Films/CT/US/NM/MRI: knee Comments [facility] [place] [place] NAME: HARMONY ESCALONA [facility] REC#: [id number] PT STATUS: REG ER : 1960 PHYSICIAN: CHAITANYA MIRANDA MD ADMIT DATE: 02/08/21/ER FS Draft Date of Exam:02/08/21 KNEE 3 VIEW BILATERAL INDICATION: Bilateral knee pain after fall two days ago. COMPARISON: None available. TECHNIQUE: Three views of each knee were obtained for a total of six views. FINDINGS: Right knee: No fracture or malalignment. No knee joint effusion. Moderate joint space narrowing in the medial compartment is degenerative in nature. Surgical clips are present along the medial aspect of the knee. Left knee: No fracture or malalignment. Chondrocalcinosis is likely degenerative in nature. No knee joint effusion. Vascular calcifications are seen. IMPRESSION: 1. No acute fracture of either knee. 2. Bilateral knee osteoarthritis. Dictated on workstation # [id number] Dict: 02/08/21 1204 Trans: 02/08/21 1210 AS6 [id number] Interpreted by: CODY DAVENPORT MD Electronically signed by: Reviewed: Reviewed by Mt Diagonstic Imaging: CT Plain Films/CT/US/NM/MRI: head Comments [facility] [place] [place] NAME: HARMONY ESCALONA [facility] REC#: [id number] PT STATUS: REG ER : 1960 PHYSICIAN: CHAITANYA MIRANDA MD ADMIT DATE: 02/08/21/ER FS Draft Date of Exam:02/08/21 CT HEAD WO PROCEDURE: CT head without contrast. TECHNIQUE: Multiple contiguous axial images were obtained through the brain without the use of intravenous contrast. Auto Exposure Controls were utilized during the CT exam to meet ALARA standards for radiation dose reduction. INDICATION: Fall with pain in the occipital region. No prior studies are available for comparison. FINDINGS: The ventricles and sulci are within normal limits. There is no sulcal effacement or midline shift. No acute intra-axial or extra-axial hemorrhage is detected. Cisterns are patent. Visualized paranasal sinuses are clear. IMPRESSION: No acute intracranial process is detected. Dictated on workstation # [id number] Dict: 02/08/21 1202 Trans: 02/08/21 1205 SA [id number] Interpreted by: DOUGLAS NOVA MD Electronically signed by: Reviewed: Reviewed by Mt Diagonstic Imaging: Xray Plain Films/CT/US/NM/MRI: other (Foot) Comments [facility] [place] [place] NAME: HARMONY ESCALONA [facility] REC#: [id number] PT STATUS: REG ER : 1960 PHYSICIAN: CHAITANYA MIRANDA MD ADMIT DATE: 02/08/21/ER FS Draft Date of Exam:02/08/21 FOOT 3 VIEW RIGHT INDICATION: Right foot pain after fall. COMPARISON: None available. TECHNIQUE: Three nonweightbearing views of the right foot. FINDINGS: No acute fracture. Alignment is normal by nonweightbearing imaging. Calcaneal spurs are present. Mild degenerative changes at the talonavicular joint. IMPRESSION: No fracture within the right foot. Dictated on workstation # [id number] Dict: 02/08/21 1207 Trans: 02/08/21 1222 AS6 [id number] Interpreted by: CODY DAVENPORT MD Electronically signed by: Reviewed: Reviewed by Me Departure Impression Primary Impression: Mild sprain of right ankle Qualified Codes: S93.401A - Sprain of unspecified ligament of right ankle, initial encounter Additional Impressions: Right foot strain Qualified Codes: S96.911A - Strain of unspecified muscle and tendon at ankle and foot level, right foot, initial encounter Bilateral knee pain Qualified Codes: M25.561 - Pain in right knee; M25.562 - Pain in left knee Fall at home Qualified Codes: W19.XXXA - Unspecified fall, initial encounter; Y92.009 - Unspecified place in unspecified non-institutional (private) residence as the place of occurrence of the external cause Cervical myofascial strain Qualified Codes: S16.1XXA - Strain of muscle, fascia and tendon at neck level, initial encounter Pain of occiput Contusion of scalp, initial encounter Chronic lumbar pain Qualified Codes: M54.5 - Low back pain; G89.29 - Other chronic pain Disposition: 01 HOME, SELF-CARE Condition: Stable Departure-Patient Inst. Decision time for Depature: 13:08 Referrals: ALOK PEREZ (PCP) Primary Care Physician [facility] (Family) Primary Care Physician Patient Instructions: Preventing Falls ED, Cervical Sprain ED, Knee Pain ED, Ankle Sprain ED, Low Back Pain ED Add. Discharge Instructions: Stay well hydrated and get plenty of rest. Follow up with clinic for refill of your chronic medicines. Alternate ice and heat to help with pain and inflammation. Use ankle air splint to help with pain and give support to your ankle. All discharge instructions reviewed with patient and/or family. Voiced understanding. Scripts Cyclobenzaprine HCl (Cyclobenzaprine HCl) 10 Mg Tablet 10 MG PO Q8H PRN for SPASMS for 5 Days, #15 TAB 0 Refills Prov: CHAITANYA MIRANDA MD 02/08/21 Hydrocodone/Acetaminophen (Hydrocodone-Acetamin 10-325 mg) 1 Each Tablet 1 EACH PO TID PRN for PAIN-SEVERE (8-10) for 2 Days, #6 TAB 0 Refills Prov: CHAITANYA MIRANDA MD 02/08/21 CHAITANYA MIRANDA MD Feb 08, 2021 10:55
--- NOTE | 2021-02-08 12:05 | Diagnostic Imaging Report ---
PROCEDURE: CT head without contrast. TECHNIQUE: Multiple contiguous axial images were obtained through the brain without the use of intravenous contrast. Auto Exposure Controls were utilized during the CT exam to meet ALARA standards for radiation dose reduction. INDICATION: Fall with pain in the occipital region. No prior studies are available for comparison. FINDINGS: The ventricles and sulci are within normal limits. There is no sulcal effacement or midline shift. No acute intra-axial or extra-axial hemorrhage is detected. Cisterns are patent. Visualized paranasal sinuses are clear. IMPRESSION: No acute intracranial process is detected. Dictated by: Dictated on workstation # [id number]
--- NOTE | 2021-02-08 12:08 | Diagnostic Imaging Report ---
ANKLE 3 VIEW RIGHT COMPARISON: None available. INDICATION: Ankle pain after fall TECHNIQUE: Non-weight bearing AP, oblique, and lateral views. FINDINGS: No fracture or traumatic malalignment. No osteochondral lesion of the talar dome. Small plantar and dorsal calcaneal spurs. IMPRESSION: 1. No acute fracture or traumatic malalignment. Dictated by: Dictated on workstation # [id number]
--- NOTE | 2021-02-08 12:11 | Diagnostic Imaging Report ---
INDICATION: Bilateral knee pain after fall two days ago. COMPARISON: None available. TECHNIQUE: Three views of each knee were obtained for a total of six views. FINDINGS: Right knee: No fracture or malalignment. No knee joint effusion. Moderate joint space narrowing in the medial compartment is degenerative in nature. Surgical clips are present along the medial aspect of the knee. Left knee: No fracture or malalignment. Chondrocalcinosis is likely degenerative in nature. No knee joint effusion. Vascular calcifications are seen. IMPRESSION: 1. No acute fracture of either knee. 2. Bilateral knee osteoarthritis. Dictated by: Dictated on workstation # [id number]
--- NOTE | 2021-02-08 12:22 | Diagnostic Imaging Report ---
INDICATION: Right foot pain after fall. COMPARISON: None available. TECHNIQUE: Three nonweightbearing views of the right foot. FINDINGS: No acute fracture. Alignment is normal by nonweightbearing imaging. Calcaneal spurs are present. Mild degenerative changes at the talonavicular joint. IMPRESSION: No fracture within the right foot. Dictated by: Dictated on workstation # [id number]
[2021-02-08] MEDS ORDERED: HYDR-3820 PO (13:08)
[2021-02-08] MEDS ORDERED: CYCL10TA9 PO (13:08)
[2021-02-08 13:16] VITALS: BP 123/82
== END 2021-02-08 13:19 | disposition home or self-care (01) ==
LOC: EDUNIT# 10:23 → ER FS 10:25
DX: S93.401A Sprain of unspecified ligament of right ankle, initial encounter (principal); S96.911A Strain of unspecified muscle and tendon at ankle and foot level, right foot, initial encounter; S16.1XXA Strain of muscle, fascia and tendon at neck level, initial encounter; S00.03XA Contusion of scalp, initial encounter; G89.29 Other chronic pain; M54.5 Low back pain; M25.562 Pain in left knee; M25.561 Pain in right knee; I11.0 Hypertensive heart disease with heart failure; I50.9 Heart failure, unspecified; I25.2 Old myocardial infarction; J45.909 Unspecified asthma, uncomplicated; R40.2410 Glasgow coma scale score 13-15, unspecified time; Z88.5 Allergy status to narcotic agent; Z79.891 Long term (current) use of opiate analgesic; W22.8XXA Striking against or struck by other objects, initial encounter; Y92.009 Unspecified place in unspecified non-institutional (private) residence as the place of occurrence of the external cause
CPT/HCPCS: 70450; 73610; 73630; 96372

== ENCOUNTER 2021-10-03 20:13 | Emergency (ER) | payer MEDICAID ==
[~2021-10-03] VITALS: Ht 165 cm; Wt 88.0 kg
[~2021-10-03 20:13] MED LIST changes: +CYCL10TA25 PO; +HYDR-3820 PO
[2021-10-03 20:51] LABS: BASOPHILS # (AUTO) 0.1 10^3/uL (0.0-0.1); BASOPHILS % (AUTO) 1 % (0-10); EOSINOPHILS # (AUTO) 0.4 10^3/uL (0.0-0.3); EOSINOPHILS % (AUTO) 7 % (0-10); HEMATOCRIT 37 % (35-52); HEMOGLOBIN 12.1 g/dL (11.5-16.0); LYMPHOCYTES # (AUTO) 2.1 10^3/uL (1.0-4.0); LYMPHOCYTES % (AUTO) 33 % (12-44); MEAN CORPUSCULAR HEMOGLOBIN 30 pg (25-34); MEAN CORPUSCULAR HGB CONC 33 g/dL (32-36); MEAN CORPUSCULAR VOLUME 89 fL (80-99); MONOCYTES # (AUTO) 0.4 10^3/uL (0.0-1.0); MONOCYTES % (AUTO) 7 % (0-12); NEUTROPHILS # (AUTO) 3.4 10^3/uL (1.8-7.8); NEUTROPHILS % (AUTO) 52 % (42-75); PLATELET COUNT 272 10^3/uL (130-400); WHITE BLOOD COUNT 6.5 10^3/uL (4.3-11.0)
[2021-10-03 20:57] LABS: INR 0.9 (0.8-1.4); PROTHROMBIN TIME PATIENT 12.5 SEC (12.2-14.7)
[2021-10-03 21:06] LABS: FIBRIN DEGRADATION PRODUCTS 0.34 UG/ML (0.00-0.49)
[2021-10-03 21:09] LABS: ALBUMIN 3.9 GM/DL (3.2-4.5); BILIRUBIN,TOTAL 0.3 MG/DL (0.1-1.0); CALCIUM 9.9 MG/DL (8.5-10.1); CREATININE SERUM 0.72 MG/DL (0.60-1.30); POTASSIUM 4.1 MMOL/L (3.6-5.0); TOTAL PROTEIN 6.4 GM/DL (6.4-8.2)
[2021-10-03] MEDS ORDERED: CATHETER FLUSH 10 ML SYR IV PRN (21:45)
[2021-10-03] MEDS ORDERED: NS 100 ML (IVPB) BAG IV ONE ×2 (21:45)
[2021-10-03] MEDS ORDERED: IOHEXOL 350 MG/ML 150 ML (OMNIPAQUE 350) VIAL IV ONE (21:45)
[2021-10-03] MEDS ORDERED: HOLD METFORMIN - RECEIVED CONTRAST 20 ML VIAL IV SCH (21:45)
[2021-10-03] MEDS: NS IV 1000 ML 1,000 ML IV SCH ×2 (21:49→21:54)
--- NOTE | 2021-10-03 22:08 | Diagnostic Imaging Report ---
PROCEDURE: CT angiography of the chest with contrast. TECHNIQUE: Multiple contiguous axial images were obtained through the chest after uneventful bolus administration of intravenous contrast. 3D reconstructed CTA MIP acquisitions were also performed. Auto Exposure Controls were utilized during the CT exam to meet ALARA standards for radiation dose reduction. INDICATION: Shortness of breath. FINDINGS: There are no CT angiographic findings of a pulmonary artery filling defect or pulmonary embolus. The patient is status post prior sternotomy and bypass grafting. There is no aortic dissection or aneurysm. There are g[place] coronary artery calcifications. There is no significant pericardial collection. The lungs demonstrate no findings of pneumonia or edema. There is no pleural effusion. There is no suspicious pulmonary nodule or mass. There are no pathologically enlarged mediastinal lymph nodes evident. There are some prominent apparent venous collaterals within the anterior chest wall. There is no acute thoracic osseous abnormality demonstrated. IMPRESSION: 1. No CT angiographic evidence of pulmonary embolus. 2. Prior sternotomy and bypass grafting with advanced gulkana coronary artery calcifications. 3. No findings of pneumonia or edema. There is no pleural collection or pneumothorax. 4. No suspicious nodule or mass. 5. No findings of thoracic adenopathy. 6. Abdominal findings are dictated on separate CT exam. Dictated by: Dictated on workstation # [id number]
--- NOTE | 2021-10-03 22:11 | Diagnostic Imaging Report ---
PROCEDURE: CT abdomen and pelvis with contrast. TECHNIQUE: Multiple contiguous axial images were obtained through the abdomen and pelvis after administration of intravenous contrast. Auto Exposure Controls were utilized during the CT exam to meet ALARA standards for radiation dose reduction. All CT scans use one or more of the following dose optimizing techniques: automated exposure control, MA and/or KvP adjustment based on patient size and exam type or iterative reconstruction. INDICATION: Abdominal pain. Correlation made with CT angiogram of the chest from the same day. FINDINGS: The lung bases are clear without effusion or pneumonia. There is no focal intrahepatic abnormality. The main portal veins are prominent but patent. The spleen is normal in size. There is no focal pancreatic abnormality. There is mild main pancreatic ductal dilatation without definable pancreatic mass. The gallbladder is absent without evidence of biliary dilatation. There is no adrenal mass. There are small renal cysts. There is no hydronephrosis. There is no perinephric fat stranding. There is fluid within the stomach without gastric wall thickening. There are no findings of abnormal small or large bowel dilation or evidence of bowel obstruction. The patient is status post hysterectomy. There is no free fluid. There is no free air. There is no abscess or adenopathy. There is mild thickening of the urinary bladder wall. The abdominal aorta demonstrates atherosclerotic disease but is patent with patent runoff to both groins. There are extensive vascular collaterals evident within the abdominal wall and lower chest wall. There are multilevel degenerative changes demonstrated throughout the spine without evidence of an acute or suspicious osseous abnormality. IMPRESSION: 1. No findings of bowel obstruction or abnormal bowel thickening. 2. No free air, free fluid, abscess or focal inflammation in the omentum or mesentery. 3. No findings of biliary dilatation. The patient is status post cholecystectomy. 4. The kidneys are nonobstructed. 5. No adenopathy. 6. Extensive venous collaterals within the abdominal and chest wall. 7. Slight thickening of the urinary bladder. 8. Previous hysterectomy. Dictated by: Dictated on workstation # [id number]
[2021-10-03] MEDS ORDERED: ONDANSETRON 4 MG/2 ML (SDV) Z0FRAN IVP ONE (22:15)
--- NOTE | 2021-10-03 22:31 | ED Abdominal Pain ---
General Chief Complaint: Abdominal/GI Problems Stated Complaint: ABD PAIN History of Present Illness Date Seen by Provider: Oct 03, 2021 Time Seen by Provider: 20:20 Initial Comments 61 yr F with PMH of cardiac stents, is here with c/o abdominal discomfort and nausea, vomiting which began today, a couple hours prior to coming to the ER. Pain is intermittent and feels like cramping. Denies diarrhea, chest pain, palpitations, shortness of breath, dysuria, hematuria, dizziness. No known sick contacts. Patient has loss of appetite. Allergies and Home Medications Allergies Coded Allergies: codeine (Verified Allergy, Mild, 12/20/20) Penicillins (Verified Allergy, Unknown, 01/11/21) prednisone (Verified Allergy, Unknown, 01/11/21) Patient Home Medication List Home Medication List Reviewed: Yes Cephalexin (Cephalexin) 500 Mg Tablet, 500 MG PO QID Prescribed by: AMILCAR ARRIAGA on 12/20/20 1241 Cyclobenzaprine HCl (Cyclobenzaprine HCl) 10 Mg Tablet, 10 MG PO Q8H PRN for SPASMS Prescribed by: CHAITANYA MIRANDA on 02/08/21 1308 Hydrocodone/Acetaminophen (Hydrocodone-Acetamin 10-325 mg) 1 Each Tablet, 1 EACH PO TID PRN for PAIN-SEVERE (8-10) Prescribed by: CHAITANYA MIRANDA on 02/08/21 1308 Ondansetron (Ondansetron Odt) 4 Mg Tab.rapdis, 4 MG PO Q6H PRN for NAUSEA/VOMITING Prescribed by: AMILCAR ARRIAGA on 12/20/20 1241 Ondansetron (Ondansetron Odt) 4 Mg Tab.rapdis, 4 MG PO Q6H Prescribed by: GREY BOWER MD on 10/03/21 2240 Review of Systems Review of Systems Constitutional: no symptoms reported EENTM: No Symptoms Reported Respiratory: No Symptoms Reported Cardiovascular: No Symptoms Reported Gastrointestinal: Abdomen Distended, Abdominal Pain Genitourinary: No Symptoms Reported Musculoskeletal: no symptoms reported Skin: no symptoms reported Psychiatric/Neurological: Other (AMS) Past Mgyfsuv-Mdyark-Dcgwrn Hx Patient Social History Tobacco Use?: Yes Tobacco type used: Cigarettes Smoking Status: Current Everyday Smoker Use of E-Cig and/or Vaping dev: No Substance use?: No Alcohol Use?: No Pt feels they are or have been: No Seasonal Allergies Seasonal Allergies: No Past Medical History Surgeries: Yes Cardiac, Coronary Stent, Valve Replacement Respiratory: Yes Asthma Cardiac: Yes (CHF) Heart Attack, High Cholesterol, Hypertension Neurological: No Genitourinary: No Gastrointestinal: No Musculoskeletal: Yes (Chronic Pain) Endocrine: No HEENT: No Cancer: No Psychosocial: No Integumentary: No Blood Disorders: No Physical Exam Vital Signs Vital Signs - First Documented 10/03/21 20:16 Temp 36.4 Pulse 79 Resp 14 B/P (MAP) 131/78 (95) Pulse Ox 99 O2 Delivery Room Air Capillary Refill : Less Than 3 Seconds Height/Weight/BMI Height: '" Weight: lbs. oz. kg; 32.00 BMI Method: General Appearance: moderate distress HEENT: PERRL/EOMI Neck: full range of motion Respiratory: lungs clear, normal breath sounds Cardiovascular: normal peripheral pulses, regular rate, rhythm, tachycardia, systolic murmur Gastrointestinal: normal bowel sounds, non tender, soft, no organomegaly, no pulsatile mass Extremities: normal range of motion, normal inspection, no pedal edema Back: no CVA tenderness Neurologic/Psychiatric: no motor/sensory deficits, alert, normal mood/affect, oriented x 3 Progress/Results/Core Measures Results/Orders Lab Results Laboratory Tests Test 10/03/21 20:28 10/03/21 22:15 Range/Units White Blood Count 6.5 4.3-11.0 10^3/uL Red Blood Count 4.09 3.80-5.11 10^6/uL Hemoglobin 12.1 11.5-16.0 g/dL Hematocrit 37 35-52 % Mean Corpuscular Volume 89 80-99 fL Mean Corpuscular Hemoglobin 30 25-34 pg Mean Corpuscular Hemoglobin Concent 33 32-36 g/dL Red Cell Distribution Width 13.3 10.0-14.5 % Platelet Count 272 130-400 10^3/uL Mean Platelet Volume 10.0 9.0-12.2 fL Immature Granulocyte % (Auto) 0 % Neutrophils (%) (Auto) 52 42-75 % Lymphocytes (%) (Auto) 33 12-44 % Monocytes (%) (Auto) 7 0-12 % Eosinophils (%) (Auto) 7 0-10 % Basophils (%) (Auto) 1 0-10 % Neutrophils # (Auto) 3.4 1.8-7.8 10^3/uL Lymphocytes # (Auto) 2.1 1.0-4.0 10^3/uL Monocytes # (Auto) 0.4 0.0-1.0 10^3/uL Eosinophils # (Auto) 0.4 H 0.0-0.3 10^3/uL Basophils # (Auto) 0.1 0.0-0.1 10^3/uL Immature Granulocyte # (Auto) 0.0 0.0-0.1 10^3/uL Prothrombin Time 12.5 12.2-14.7 SEC INR Comment 0.9 0.8-1.4 Activated Partial Thromboplast Time 27 24-35 SEC D-Dimer 0.34 0.00-0.49 UG/ML Sodium Level 141 135-145 MMOL/L Potassium Level 4.1 3.6-5.0 MMOL/L Chloride Level 102 98-107 MMOL/L Carbon Dioxide Level 30 21-32 MMOL/L Anion Gap 9 5-14 MMOL/L Blood Urea Nitrogen 22 H 7-18 MG/DL Creatinine 0.72 0.60-1.30 MG/DL Estimat Glomerular Filtration Rate 95 BUN/Creatinine Ratio 31 Glucose Level 134 H 70-105 MG/DL Calcium Level 9.9 8.5-10.1 MG/DL Corrected Calcium 10.0 8.5-10.1 MG/DL Total Bilirubin 0.3 0.1-1.0 MG/DL Aspartate Amino Transf (AST/SGOT) 11 5-34 U/L Alanine Aminotransferase (ALT/SGPT) 9 0-55 U/L Alkaline Phosphatase 56 40-136 U/L Troponin I < 0.30 <0.30 NG/ML Total Protein 6.4 6.4-8.2 GM/DL Albumin 3.9 3.2-4.5 GM/DL Lipase 51 8-78 U/L Urine Color YELLOW Urine Clarity SLT CLOUDY Urine pH 7.5 5-9 Urine Specific Eva 1.010 L 1.016-1.022 Urine Protein NEGATIVE NEGATIVE Urine Glucose (UA) NEGATIVE NEGATIVE Urine Ketones NEGATIVE NEGATIVE Urine Nitrite POSITIVE H NEGATIVE Urine Bilirubin NEGATIVE NEGATIVE Urine Urobilinogen 0.2 < = 1.0 MG/DL Urine Leukocyte Esterase NEGATIVE NEGATIVE Urine RBC (Auto) NEGATIVE NEGATIVE Urine RBC NONE /HPF Urine WBC 2-5 /HPF Urine Squamous Epithelial Cells 0-2 /HPF Urine Crystals NONE /LPF Urine Bacteria LARGE H /HPF Urine Casts NONE /LPF Urine Mucus NEGATIVE /LPF Urine Culture Indicated YES My Orders Orders - GREY BOWER MD Comprehensive Metabolic Panel (10/03/21 20:43) Lipase (10/03/21 20:43) Ua Culture If Indicated (10/03/21 20:43) Cbc With Automated Diff (10/03/21 20:43) Ct Abdomen/Pelvis W (10/03/21 20:43) Protime With Inr (10/03/21 20:44) Partial Thromboplastin Time (10/03/21 20:44) Troponin I Fs (10/03/21 20:44) Fibrin Degradation Products (10/03/21 20:44) Ct Angio Chest W (10/03/21 20:51) Ed Iv/Invasive Line Start (10/03/21 21:19) Ns Iv 1000 Ml (Sodium Chloride 0.9%) (10/03/21 21:30) Iohexol Injection (Omnipaque 350 Mg/Ml 1 (10/03/21 21:45) Received Contrast (Hold Metformin- Contr (10/03/21 21:45) Sodium Chloride Flush (Catheter Flush Sy (10/03/21 21:45) Ns (Ivpb) (Sodium Chloride 0.9% Ivpb Bag (10/03/21 21:45) Ns (Ivpb) (Sodium Chloride 0.9% Ivpb Bag (10/03/21 21:45) Ondansetron Injection (Zofran Injectio (10/03/21 22:15) Urine Culture (10/03/21 22:15) Medications Given in ED Current Medications Medications Dose Ordered Sig/Adriana Route Start Time Stop Time Status Last Admin Dose Admin Iohexol 150 ml ONCE ONCE IV 10/03/21 21:45 10/03/21 21:46 DC 10/03/21 21:45 125 ML Sodium Chloride 10 ml NEEDED PRN IV 10/03/21 21:45 10/03/21 21:45 10 ML Sodium Chloride 100 ml ONCE ONCE IV 10/03/21 21:45 10/03/21 21:46 DC 10/03/21 21:45 100 ML Vital Signs/I&O 10/03/21 20:16 Temp 36.4 Pulse 79 Resp 14 B/P (MAP) 131/78 (95) Pulse Ox 99 O2 Delivery Room Air Blood Pressure Mean: 95 Progress Progress Note : Progress Note 1. ABDOMINAL PAIN: VIRAL GASTROENTERITIS: - CT ABDOMEN: unremarkable - CBC: normal WBC and Hb - lipase negative - troponin normal - NS IVF and ZOfran, pt improved prior to discharge - Zofran prescription - Advised bland diet, adequate hydration, and PCP f/u -The patient was seen in the ED, and treated appropriately to presentation at a specific point in time. Patient is informed that there is a possibility that disease and illness can evolve and change in acuity rapidly or slowly after patient is discharged from the ER. Precautionary advice given to the patient for immediate return to ER if symptoms worsen or do not resolve, and to seek emergency care sooner rather than later. Pt also advised on the importance of PCP follow up and compliance with management and follow up plan. Pt verbally expressed understanding. Initial ECG Impression Date: Oct 03, 2021 Initial ECG Impression Time: 20:33 Initial ECG Rate: 77 Initial ECG Rhythm: Normal Sinus Initial ECG Impression: Nonspecific Changes Initial ECG Comparisson: No Previous ECG Available Diagnostic Imaging Diagonstic Imaging: CT Plain Films/CT/US/NM/MRI: chest, abdomen Comments NAME: HARMONY ESCALONA [facility] REC#: [id number] PT STATUS: REG ER : 1960 PHYSICIAN: GREY BOWER MD ADMIT DATE: 10/03/21/ER FS Draft Date of Exam:10/03/21 CT ANGIO CHEST W PROCEDURE: CT angiography of the chest with contrast. TECHNIQUE: Multiple contiguous axial images were obtained through the chest after uneventful bolus administration of intravenous contrast. 3D reconstructed CTA MIP acquisitions were also performed. Auto Exposure Controls were utilized during the CT exam to meet ALARA standards for radiation dose reduction. INDICATION: Shortness of breath. FINDINGS: There are no CT angiographic findings of a pulmonary artery filling defect or pulmonary embolus. The patient is status post prior sternotomy and bypass grafting. There is no aortic dissection or aneurysm. There are [place] coronary artery calcifications. There is no significant pericardial collection. The lungs demonstrate no findings of pneumonia or edema. There is no pleural effusion. There is no suspicious pulmonary nodule or mass. There are no pathologically enlarged mediastinal lymph nodes evident. There are some prominent apparent venous collaterals within the anterior chest wall. There is no acute thoracic osseous abnormality demonstrated. IMPRESSION: 1. No CT angiographic evidence of pulmonary embolus. 2. Prior sternotomy and bypass grafting with advanced [place] coronary artery calcifications. 3. No findings of pneumonia or edema. There is no pleural collection or pneumothorax. 4. No suspicious nodule or mass. 5. No findings of thoracic adenopathy. 6. Abdominal findings are dictated on separate CT exam. Dictated on workstation # [id number] Dict: 10/03/212157 Trans: 10/03/212206 [id number] Interpreted by: YAMILEX POWER MD Electronically signed by: NAME: HARMONY ESCALONA [facility] REC#: [id number] PT STATUS: REG ER : 1960 PHYSICIAN: GREY BOWER MD ADMIT DATE: 10/03/21/ER FS Draft Date of Exam:10/03/21 CT ABDOMEN/PELVIS W PROCEDURE: CT abdomen and pelvis with contrast. TECHNIQUE: Multiple contiguous axial images were obtained through the abdomen and pelvis after administration of intravenous contrast. Auto Exposure Controls were utilized during the CT exam to meet ALARA standards for radiation dose reduction. All CT scans use one or more of the following dose optimizing techniques: automated exposure control, MA and/or KvP adjustment based on patient size and exam type or iterative reconstruction. INDICATION: Abdominal pain. Correlation made with CT angiogram of the chest from the same day. FINDINGS: The lung bases are clear without effusion or pneumonia. There is no focal intrahepatic abnormality. The main portal veins are prominent but patent. The spleen is normal in size. There is no focal pancreatic abnormality. There is mild main pancreatic ductal dilatation without definable pancreatic mass. The gallbladder is absent without evidence of biliary dilatation. There is no adrenal mass. There are small renal cysts. There is no hydronephrosis. There is no perinephric fat stranding. There is fluid within the stomach without gastric wall thickening. There are no findings of abnormal small or large bowel dilation or evidence of bowel obstruction. The patient is status post hysterectomy. There is no free fluid. There is no free air. There is no abscess or adenopathy. There is mild thickening of the urinary bladder wall. The abdominal aorta demonstrates atherosclerotic disease but is patent with patent runoff to both groins. There are extensive vascular collaterals evident within the abdominal wall and lower chest wall. There are multilevel degenerative changes demonstrated throughout the spine without evidence of an acute or suspicious osseous abnormality. IMPRESSION: 1. No findings of bowel obstruction or abnormal bowel thickening. 2. No free air, free fluid, abscess or focal inflammation in the omentum or mesentery. 3. No findings of biliary dilatation. The patient is status post cholecystectomy. 4. The kidneys are nonobstructed. 5. No adenopathy. 6. Extensive venous collaterals within the abdominal and chest wall. 7. Slight thickening of the urinary bladder. 8. Previous hysterectomy. Dictated on workstation # [id number] Dict: 10/03/212199 Trans: 10/03/212210 [id number] Interpreted by: YAMILEX POWER MD Electronically signed by: Departure Impression Primary Impression: Viral gastroenteritis Disposition: 01 HOME, SELF-CARE Condition: Improved Departure-Patient Inst. Referrals: ALOK PEREZ (PCP) Primary Care Physician [facility] (Family) Primary Care Physician Patient Instructions: Viral Gastroenteritis Scripts Ondansetron (Ondansetron Odt) 4 Mg Tab.rapdis 4 MG PO Q6H for Nausea, #10 TAB Prov: GREY BOWER MD 10/03/21 GREY BOWER MD Oct 03, 2021 22:31
[2021-10-03 22:33] LABS: CLARITY,URINE SLT CLOUDY; COLOR,URINE YELLOW; PH,URINE 7.5 (5-9)
[2021-10-03 22:34] LABS: BACTERIA,URINE LARGE /HPF; BILIRUBIN,URINE NEGATIVE (NEGATIVE); GLUCOSE, URINE (UA) NEGATIVE (NEGATIVE); KETONES,URINE NEGATIVE (NEGATIVE); LEUKOCYTE ESTERASE ,URINE NEGATIVE (NEGATIVE); NITRITE,URINE POSITIVE (NEGATIVE); PROTEIN,URINE NEGATIVE (NEGATIVE); SQUAMOUS EPITHELIAL CELL,UR 0-2 /HPF
[2021-10-03] MEDS ORDERED: ONDA4TAB11 PO (22:40)
[2021-10-03 23:15] VITALS: BP 143/93
== END 2021-10-03 23:15 | disposition home or self-care (01) ==
LOC: EDUNIT# 20:13 → ER FS 20:14
DX: A08.4 Viral intestinal infection, unspecified (principal); I25.2 Old myocardial infarction; I11.0 Hypertensive heart disease with heart failure; I50.9 Heart failure, unspecified; J45.909 Unspecified asthma, uncomplicated; F17.210 Nicotine dependence, cigarettes, uncomplicated
CPT/HCPCS: 36415; 71275; 74177; 80053; 81000; 83690; 84484; 85025; 85379; 85610; 85730; 87077; 87088; Q9967

== ENCOUNTER 2022-11-27 04:23 | Emergency (ER) | payer MEDICAID ==
[~2022-11-27] VITALS: Ht 162 cm; Wt 76.6 kg
[2022-11-27 04:39] LABS: BASOPHILS # (AUTO) 0.1 10^3/uL (0.0-0.1); BASOPHILS % (AUTO) 1 % (0-10); EOSINOPHILS # (AUTO) 0.2 10^3/uL (0.0-0.3); EOSINOPHILS % (AUTO) 3 % (0-10); HEMATOCRIT 41 % (35-52); HEMOGLOBIN 13.3 g/dL (11.5-16.0); LYMPHOCYTES # (AUTO) 2.3 10^3/uL (1.0-4.0); LYMPHOCYTES % (AUTO) 31 % (12-44); MEAN CORPUSCULAR HEMOGLOBIN 30 pg (25-34); MEAN CORPUSCULAR HGB CONC 33 g/dL (32-36); MEAN CORPUSCULAR VOLUME 90 fL (80-99); MEAN PLATELET VOLUME 9.9 fL (9.0-12.2); MONOCYTES # (AUTO) 0.5 10^3/uL (0.0-1.0); MONOCYTES % (AUTO) 7 % (0-12); NEUTROPHILS # (AUTO) 4.3 10^3/uL (1.8-7.8); NEUTROPHILS % (AUTO) 58 % (42-75); PLATELET COUNT 236 10^3/uL (130-400); WHITE BLOOD COUNT 7.5 10^3/uL (4.3-11.0)
[2022-11-27] MEDS ORDERED: LACTATED RINGERS 1,000 ML IV ONE (04:45)
[2022-11-27] MEDS ORDERED: LIDOCAINE 2% VISCOUS 15 ML UDC PO ONE (04:45)
[2022-11-27] MEDS ORDERED: ONDANSETRON 4 MG/2 ML (SDV) Z0FRAN IVP ONE (04:45)
[2022-11-27] MEDS ORDERED: ANTACID SUSP 30 ML UDC (MYLANTA) PO ONE (04:45)
[2022-11-27 05:05] LABS: ALKALINE PHOSPHATASE 87 U/L (40-136); BILIRUBIN,TOTAL 0.6 MG/DL (0.1-1.0); BUN/CREATININE RATIO 29; CARBON DIOXIDE 26 MMOL/L (21-32); CHLORIDE 106 MMOL/L (98-107); CREATININE SERUM 0.73 MG/DL (0.60-1.30); GFR ESTIMATED 93; GLUCOSE 100 MG/DL (70-105); POTASSIUM 3.6 MMOL/L (3.6-5.0); SODIUM 140 MMOL/L (135-145)
[2022-11-27 05:06] LABS: ALANINE AMINOTRANSFERASE 67 U/L (0-55); ALBUMIN 3.8 GM/DL (3.2-4.5); LIPASE 208 U/L (8-78); TOTAL PROTEIN 6.4 GM/DL (6.4-8.2)
--- NOTE | 2022-11-27 05:10 | ED Abdominal Pain ---
General Chief Complaint: Abdominal/GI Problems Stated Complaint: CP Nursing Triage Note: PATIENT STATES DIARRHEA AND NAUSEA X3 DAYS. STATES UPPER ABDOMINAL PAIN. Source of Information: Patient, EMS Exam Limitations: No Limitations History of Present Illness Date Seen by Provider: Nov 27, 2022 Time Seen by Provider: 04:23 Initial Comments This 62-year-old woman presents to the emergency room via EMS with primary complaint of epigastric pain. She has had diarrhea for the past few days and then developed epigastric pain over the past 3 hours. She has nausea without vomiting. She received Zofran 4 mg IV by EMS. She reports running out of her pain medications 3 weeks ago. She usually takes hydrocodone and a muscle relaxer. She has significant health history including asthma, chronic pain, diabetes, DVT, coronary artery disease status post CABG. She has had a mild cough in recent days as well. Vital signs are relatively unremarkable and patient is afebrile. She claims Dr. Coffey in [place] as her primary care provider. Allergies and Home Medications Allergies Coded Allergies: codeine (Verified Allergy, Mild, 12/20/20) Penicillins (Verified Allergy, Unknown, 01/11/21) prednisone (Verified Allergy, Unknown, 01/11/21) Patient Home Medication List Home Medication List Reviewed: Yes Hydrocodone/Acetaminophen (Hydrocodone-Acetamin 5-325 mg) 5 Mg-325 Mg Tablet, 1 TAB PO Q4H PRN for PAIN-MODERATE (5-7) Prescribed by: BERNY CALLEJAS on 11/27/22 0552 Ondansetron (Ondansetron Odt) 4 Mg Tab.rapdis, 4 MG PO Q6H Prescribed by: GREY BOWER MD on 10/03/21 2240 Ondansetron (Ondansetron Odt) 4 Mg Tab.rapdis, 4 MG SL Q4H PRN for NAUSEA/VOMITING Prescribed by: BERNY CALLEJAS on 11/27/22 0551 Pantoprazole Sodium (Protonix) 40 Mg Tablet.dr, 40 MG PO DAILY Prescribed by: BERNY CALLEJAS on 11/27/22 0551 Review of Systems Review of Systems Constitutional: see HPI EENTM: No Symptoms Reported Respiratory: No Symptoms Reported Cardiovascular: No Symptoms Reported Gastrointestinal: See HPI Genitourinary: No Symptoms Reported Musculoskeletal: see HPI Skin: no symptoms reported Psychiatric/Neurological: No Symptoms Reported Endocrine: No Symptoms Reported Hematologic/Lymphatic: No Symptoms Reported Past Hkcqoxr-Wtefpm-Hxblho Hx Patient Social History Tobacco Use?: Yes Tobacco type used: Cigarettes Smoking Status: Current Everyday Smoker Seasonal Allergies Seasonal Allergies: No Past Medical History Surgery/Hospitalization HX: CHRONIC BACK PAIN, ASTHMA, DM, HEART SURGERY-VALVE REPLACEMENT-UNKNOWN, Surgeries: Yes Appendectomy, Cardiac, CABG, Coronary Stent, Gallbladder, Valve Replacement Respiratory: Yes Asthma Cardiac: Yes (CHF) Coronary Artery Disease, Deep Vein Thrombosis, Heart Attack, High Cholesterol, Hypertension Neurological: No : No Genitourinary: No Gastrointestinal: No Musculoskeletal: Yes (Chronic Pain) Chronic Back Pain Endocrine: No HEENT: No Cancer: No Psychosocial: No Integumentary: No Blood Disorders: No Physical Exam Vital Signs Vital Signs - First Documented 11/27/22 04:23 Temp 36.2 Pulse 74 Resp 18 B/P (MAP) 148/102 (117) Pulse Ox 99 O2 Delivery Room Air Capillary Refill : Less Than 3 Seconds Height/Weight/BMI Height: '" Weight: lbs. oz. kg; 29.00 BMI Method: General Appearance: WD/WN, no apparent distress HEENT: normal ENT inspection Neck: normal inspection Respiratory: lungs clear, normal breath sounds, no respiratory distress Cardiovascular: regular rate, rhythm, no edema, no murmur Gastrointestinal: normal bowel sounds, soft, tenderness (Marked in the epigastrium) Extremities: normal inspection Neurologic/Psychiatric: alert, oriented x 3, other (Mood is irritable) Skin: normal color, warm/dry Progress/Results/Core Measures Results/Orders Lab Results Laboratory Tests Test 11/27/22 04:30 Range/Units White Blood Count 7.5 4.3-11.0 10^3/uL Red Blood Count 4.49 3.80-5.11 10^6/uL Hemoglobin 13.3 11.5-16.0 g/dL Hematocrit 41 35-52 % Mean Corpuscular Volume 90 80-99 fL Mean Corpuscular Hemoglobin 30 25-34 pg Mean Corpuscular Hemoglobin Concent 33 32-36 g/dL Red Cell Distribution Width 13.9 10.0-14.5 % Platelet Count 236 130-400 10^3/uL Mean Platelet Volume 9.9 9.0-12.2 fL Immature Granulocyte % (Auto) 0 % Neutrophils (%) (Auto) 58 42-75 % Lymphocytes (%) (Auto) 31 12-44 % Monocytes (%) (Auto) 7 0-12 % Eosinophils (%) (Auto) 3 0-10 % Basophils (%) (Auto) 1 0-10 % Neutrophils # (Auto) 4.3 1.8-7.8 10^3/uL Lymphocytes # (Auto) 2.3 1.0-4.0 10^3/uL Monocytes # (Auto) 0.5 0.0-1.0 10^3/uL Eosinophils # (Auto) 0.2 0.0-0.3 10^3/uL Basophils # (Auto) 0.1 0.0-0.1 10^3/uL Immature Granulocyte # (Auto) 0.0 0.0-0.1 10^3/uL Sodium Level 140 135-145 MMOL/L Potassium Level 3.6 3.6-5.0 MMOL/L Chloride Level 106 98-107 MMOL/L Carbon Dioxide Level 26 21-32 MMOL/L Anion Gap 8 5-14 MMOL/L Blood Urea Nitrogen 21 H 7-18 MG/DL Creatinine 0.73 0.60-1.30 MG/DL Estimat Glomerular Filtration Rate 93 BUN/Creatinine Ratio 29 Glucose Level 100 70-105 MG/DL Calcium Level 9.0 8.5-10.1 MG/DL Corrected Calcium 9.2 8.5-10.1 MG/DL Total Bilirubin 0.6 0.1-1.0 MG/DL Aspartate Amino Transf (AST/SGOT) 129 H 5-34 U/L Alanine Aminotransferase (ALT/SGPT) 67 H 0-55 U/L Alkaline Phosphatase 87 40-136 U/L C-Reactive Protein < 0.30 <0.50 MG/DL Total Protein 6.4 6.4-8.2 GM/DL Albumin 3.8 3.2-4.5 GM/DL Lipase 208 H 8-78 U/L My Jimenez Gaona - BERNY FINLEY MD Ondansetron Injection (Zofran Injectio (11/27/22 04:45) Lidocaine 2% Viscous 15 Ml (Xylocaine Vi (11/27/22 04:45) Antacid Suspension (Mylanta Suspension (11/27/22 04:45) Cbc With Automated Diff (11/27/22 04:32) Comprehensive Metabolic Panel (11/27/22 04:32) Lipase (11/27/22 04:32) Ua Culture If Indicated (11/27/22 04:32) Crp Fs (11/27/22 04:32) Ed Iv/Invasive Line Start (11/27/22 04:32) Lactated Ringers (Lr 1000 Ml Iv Solution (11/27/22 04:45) Pantoprazole Tablet (Protonix Tablet) (11/27/22 05:45) Pantoprazole Tablet (Protonix Tablet) (11/27/22 05:37) Hydrocodone/Apap 5/325 Tablet (Lortab 5 (11/27/22 05:45) Medications Given in ED Current Medications Medications Dose Ordered Sig/Adriana Route Start Time Stop Time Status Last Admin Dose Admin Acetaminophen/ Hydrocodone Bitart 1 ea ONCE ONCE PO 11/27/22 05:45 11/27/22 05:46 DC 11/27/22 05:54 1 EA Al Hydrox/Mg Hydrox/Simethicone 30 ml ONCE ONCE PO 11/27/22 04:45 11/27/22 04:46 DC 11/27/22 04:38 30 ML Lactated Ringer's 1,000 ml @ 0 mls/hr Q0M ONCE IV 11/27/22 04:45 11/27/22 04:46 DC 11/27/22 05:20 0 MLS/HR Lidocaine HCl 15 ml ONCE ONCE PO 11/27/22 04:45 11/27/22 04:46 DC 11/27/22 04:38 15 ML Ondansetron HCl 4 mg ONCE ONCE IVP 11/27/22 04:45 11/27/22 04:46 DC 11/27/22 04:38 4 MG Pantoprazole Sodium 40 mg ONCE ONCE PO 11/27/22 05:45 11/27/22 05:46 DC 11/27/22 05:40 40 MG Vital Signs/I&O 11/27/22 11/27/22 04:23 06:55 Temp 36.2 Pulse 74 67 Resp 18 20 B/P (MAP) 148/102 (117) 119/70 Pulse Ox 99 98 O2 Delivery Room Air Room Air Blood Pressure Mean: 117 Progress Progress Note #1: Time: 05:13 Progress Note Patient was interviewed and examined. An additional Zofran 4 mg was given for nausea. GI cocktail was being used as a trial for treatment of her epigastric pain. Labs are being processed. Progress Note #2: Progress Note Patient had significant improvement with GI cocktail and Zofran. Labs were reviewed and interpreted by me including CBC, CMP, CRP, and lipase. Lipase was mildly elevated. Labs were otherwise unremarkable. I discussed options with the patient including admission for supportive care and monitoring of pancreatitis. Patient did not want to be admitted and declined transfer to [place]. She prefers to try treating at home with clear liquid diet and symptom control. Since symptoms had improved considerably in the ER and pancreatitis appears mild by lipase level, I am agreeable to trying treatment at home. She was additionally given Protonix and a hydrocodone in the emergency room. See discharge instructions and prescriptions for further discussion. Departure Impression Primary Impression: Epigastric pain Additional Impressions: Pancreatitis Qualified Codes: K85.90 - Acute pancreatitis without necrosis or infection, unspecified Diarrhea Qualified Codes: R19.7 - Diarrhea, unspecified Nausea Disposition: HOME, SELF-CARE Condition: Improved Departure-Patient Inst. Decision time for Depature: 05:47 Referrals: AOLK PEREZ (PCP) Primary Care Physician [facility] (Family) Primary Care Physician Patient Instructions: Abdominal Pain, Adult ED, Acute Pancreatitis Add. Discharge Instructions: Adhere to a noncarbonated clear liquid diet until your pain resolves. Then gradually advance your diet with small quantities of bland food as tolerated. You may continue your usual medications. Add Protonix to your daily medications as prescribed. Use the Zofran (ondansetron) as prescribed if needed for nausea and vomiting. Hydrocodone has been prescribed for short-term treatment of your pain. It is important that you follow-up with your primary care provider soon as possible. Please call when the office opens this morning to schedule an appointment. It would be best if you are seen this week. Avoid the following: Eating large meals, eating close to bedtime, caffeine, carbonation, chocolate, citrus fruits and juices, tomato products, mints, alcohol, tobacco, NSAID medications such as ibuprofen or naproxen, spicy foods, fatty/greasy foods, or anything else you know irritate your stomach. Return to the emergency room if you have worsening symptoms despite following these instructions. All discharge instructions reviewed with patient and/or family. Voiced understanding. Scripts Hydrocodone/Acetaminophen (Hydrocodone-Acetamin 5-325 mg) 5 Mg-325 Mg Tablet 1 TAB PO Q4H PRN for PAIN-MODERATE (5-7), #10 TAB Prov: BERNY FINLEY MD 11/27/22 Ondansetron (Ondansetron Odt) 4 Mg Tab.rapdis 4 MG SL Q4H PRN for NAUSEA/VOMITING, #10 TAB Prov: BERNY FINLEY MD 11/27/22 Pantoprazole Sodium (Protonix) 40 Mg Tablet. 40 MG PO DAILY, #30 TAB Prov: BERNY FINLEY MD 11/27/22 Copy Copies To 1: [facility]BERNY SERVIN MD Nov 27, 2022 05:10
[2022-11-27] MEDS ORDERED: PANTOPRAZOLE 40 MG (PROTONIX) TAB PO ONE ×2 (05:37→05:45)
[2022-11-27] MEDS ORDERED: HYDROcodone/APAP 5 MG/325 MG (LORTAB) TAB PO ONE (05:45)
[2022-11-27] MEDS ORDERED: ACHD5005 PO (05:51)
[2022-11-27] MEDS ORDERED: ONDA4TAB11 SL (05:51)
[2022-11-27] MEDS ORDERED: PANT40TA2 PO (05:51)
[2022-11-27 06:55] VITALS: BP 119/70
== END 2022-11-27 07:02 | disposition home or self-care (01) ==
LOC: EDUNIT# 04:23 → ER FS 04:24
DX: K85.90 Acute pancreatitis without necrosis or infection, unspecified (principal); R19.7 Diarrhea, unspecified; F17.210 Nicotine dependence, cigarettes, uncomplicated; Z90.49 Acquired absence of other specified parts of digestive tract; Z88.5 Allergy status to narcotic agent
CPT/HCPCS: 36415; 80053; 83690; 85025; 86141